=== PATIENT | male | born 1980 | race Two or more races ===

== ENCOUNTER 2017-04-11 02:49 | Emergency (ER) | payer SELFPAY ==
[~2017-04-11] VITALS: Ht 170.2 cm; Wt 63.5 kg
[~2017-04-11 02:49] MED LIST: NO REPORTABLE MEDS
--- NOTE | 2017-04-11 03:08 | NUR ---
PT PRESENTED TO THE ER WITH A C/O SORE THROAT WITH DIFFICULTY BREATHING. REDNESS NOTED AT BACK OF THROAT AND TONSILS SWOLLEN. PT STATED THAT IS CAUSING A HEADACHE. PT IS C/O LEFT EYE REDNESS WITH DISCHARGE. PT AMBULATED TO BED #3.
[2017-04-11] MEDS ORDERED: KETOROLAC TROMETHAMINE INJ 30 MG/ML VIAL ONE (03:24)
[2017-04-11] MEDS ORDERED: DEXAMETHASONE SOD PHOSPHATE 10 MG/ML VIAL ONE (03:24)
[2017-04-11] MEDS ORDERED: DEXAMETHASONE SOD PHOSPHATE 4 MG/ML VIAL IM ONE (03:30)
[2017-04-11] MEDS ORDERED: KETOROLAC TROMETHAMINE INJ 30 MG/ML VIAL IM ONE (03:30)
--- NOTE | 2017-04-11 04:17 | NUR ---
Patient discharged to home in stable condition. Written and verbal after care instructions given. Patient verbalizes understanding of instruction AND RX. PT AMBULATED OUT WITH A STEADY GAIT. VSS.
[2017-04-11 04:18] VITALS: BP 121/74
== END 2017-04-11 04:19 | disposition home or self-care (01) ==
LOC: ER 02:49
DX: J02.9 Acute pharyngitis, unspecified (principal); H10.9 Unspecified conjunctivitis; F41.9 Anxiety disorder, unspecified
CPT/HCPCS: 87070; 87880; 96372 ×2; 99284; A4606; J1100; J1885; Z7610; 86403-TC

== ENCOUNTER 2017-05-27 18:31 | Emergency (ER) | payer SELFPAY ==
[~2017-05-27] VITALS: Ht 167.6 cm; Wt 65.8 kg
[2017-05-27 18:43] VITALS: BP 124/77
[2017-05-27] MEDS ORDERED: ONDANSETRON 4 MG TAB.RAPDIS SL ONE (19:00)
[2017-05-27] MEDS ORDERED: HYDROCODONE/APAP 5/325MG 1 EACH TABLET PO ONE (19:00)
[2017-05-27] MEDS ORDERED: HYDROCODONE/APAP 5/325MG 1 EACH TABLET ONE (19:02)
[2017-05-27] MEDS ORDERED: ONDANSETRON 4 MG TAB.RAPDIS ONE (19:02)
== END 2017-05-27 19:43 | disposition home or self-care (01) ==
LOC: ER 18:34
DX: S22.32XA Fracture of one rib, left side, initial encounter for closed fracture (principal); X58.XXXA Exposure to other specified factors, initial encounter; Y93.67 Activity, basketball; Y92.89 Other specified places as the place of occurrence of the external cause; Y99.8 Other external cause status
CPT/HCPCS: 71100-TC; A4606; Q0162; Z7610

== ENCOUNTER 2018-07-30 21:43 | Emergency (ER) | payer OTHER ==
[~2018-07-30] VITALS: Ht 170.2 cm; Wt 62.1 kg
[2018-07-30 22:20] VITALS: BP 137/78
[2018-07-30] MEDS ORDERED: HYDROCODONE/APAP 10/325MG 1 EA TABLET ONE (22:57)
[2018-07-30] MEDS ORDERED: ONDANSETRON 4 MG TAB.RAPDIS ONE (22:57)
[2018-07-30] MEDS ORDERED: ONDANSETRON 4 MG TAB.RAPDIS SL ONE (23:00)
[2018-07-30] MEDS ORDERED: HYDROCODONE/APAP 10/325MG 1 EA TABLET PO ONE (23:00)
== END 2018-07-31 00:09 | disposition home or self-care (01) ==
LOC: ER 21:43
DX: S62.524A Nondisplaced fracture of distal phalanx of right thumb, initial encounter for closed fracture (principal); Z98.890 Other specified postprocedural states; Z60.2 Problems related to living alone; W21.05XA Struck by basketball, initial encounter; Y93.67 Activity, basketball; Y92.310 Basketball court as the place of occurrence of the external cause; Y99.8 Other external cause status
CPT/HCPCS: 29125; 73140; 99284; A4606; Q0162; Z7610

== ENCOUNTER 2022-04-29 01:02 | Emergency (ER) | payer SELFPAY ==
[~2022-04-29] VITALS: Ht 167.6 cm; Wt 63.5 kg
[2022-04-29 01:36] VITALS: BP 132/100
--- NOTE | 2022-04-29 01:36 | NUR ---
BIBWIFE C/O BACK PAIN, WITH LOWER LEG WEAKNESS AND RASH TO CHEST/BACK X1 DAY. PT A/OX4. TOLERATING R/A WELL WITH NO SOB.
--- NOTE | 2022-04-29 01:51 | NUR ---
PT SEEN BY DR. LAW BECKMAN
[2022-04-29] MEDS ORDERED: KETOROLAC TROMETHAMINE INJ 30 MG/ML VIAL ONE (01:57)
[2022-04-29] MEDS ORDERED: CYCLOBENZAPRINE 10 MG TABLET ONE (01:57)
[2022-04-29] MEDS ORDERED: CYCLOBENZAPRINE 10 MG TABLET PO ONE (02:00)
[2022-04-29] MEDS ORDERED: KETOROLAC TROMETHAMINE INJ 30 MG/ML VIAL IM ONE (02:00)
--- NOTE | 2022-04-29 02:07 | NUR ---
[employer] WR[employer]ING [employer]AM[employer]ER AT PT'S BEDSIDE
[2022-04-29 02:24] LABS: BASOPHILS % (AUTO) 0.3 % (0.0-2.0); EOSINOPHILS % (AUTO) 0.2 % (0.0-6.0); HEMATOCRIT 45 % (39-51); HEMOGLOBIN 15.1 g/dL (13.5-17.5); LYMPHOCYTES # (AUTO) 2.4 K/uL (0.8-4.8); LYMPHOCYTES % (AUTO) 22.7 % (20.0-44.0); MEAN CORPUSCULAR HGB CONC 34 g/dl (31.0-36.0); MEAN CORPUSCULAR VOLUME 90 fL (80-96); MONOCYTES # (AUTO) 0.7 K/uL (0.1-1.30); MONOCYTES % (AUTO) 6.3 % (2.0-12.0); NEUTROPHILS # (AUTO) 7.4 K/uL (1.8-8.9); NEUTROPHILS % (AUTO) 70.5 % (43.0-81.0); PLATELET COUNT (AUTO) 285 K/uL (150-450); RED BLOOD CELL COUNT(AUTO) 4.98 MIL/uL (4.5-6.0); WHITE BLOOD COUNT (AUTO) 10.4 K/uL (4.3-11.0)
[2022-04-29 02:36] LABS: ALBUMIN 3.9 g/dL (3.4-5.0); BILIRUBIN,TOTAL 0.6 mg/dL (0.2-1.0); CALCIUM, SERUM 8.9 mg/dL (8.5-10.1); POTASSIUM 3.8 mmol/L (3.5-5.1); TOTAL PROTEIN, SERUM 8.2 g/dL (6.4-8.2)
[2022-04-29] MEDS ORDERED: IBUP-1957 PO (03:17)
[2022-04-29] MEDS ORDERED: CYCL5TAB PO (03:17)
[2022-04-29] MEDS ORDERED: HYDR-4209 PO (03:17)
--- NOTE | 2022-04-29 03:27 | NUR ---
Patient discharged to home in stable condition. RX Written and verbal after care instructions given. Patient verbalizes understanding of instruction. PT ambulatory with a steady gait
== END 2022-04-29 03:30 | disposition home or self-care (01) ==
LOC: ER 01:18
DX: M54.50 Low back pain, unspecified (principal); R23.3 Spontaneous ecchymoses; Z98.890 Other specified postprocedural states; Z60.2 Problems related to living alone; Z79.899 Other long term (current) drug therapy
CPT/HCPCS: 36415; 80053; 85025; 85730; 96372; 99283; J1885

== ENCOUNTER 2025-08-29 19:56 | Emergency (ER) | payer BC ==
[~2025-08-29] VITALS: Ht 170.2 cm; Wt 65.8 kg
[~2025-08-29 19:56] MED LIST changes: +CYCL5TAB PO; +HYDR-4209 PO; +IBUP-1957 PO
[2025-08-29] MEDS: IV NS 0.9% 1,000 ML BAG IV ONE (20:28)
[2025-08-29 20:52] LABS: ASPARTATE AMINOTRANSFERASE 21 U/L (15-37); CALCIUM, SERUM 8.4 mg/dL (8.5-10.1); CREATININE 1.1 mg/dL (0.6-1.3); SODIUM SERUM 141 mmol/L (136-145); TOTAL PROTEIN, SERUM 7.1 g/dL (6.4-8.2); UREA NITROGEN, BLOOD 14 mg/dL (7-18)
[2025-08-29 20:55] LABS: PLATELET COUNT (AUTO) 260 K/uL (150-450); RED BLOOD CELL COUNT(AUTO) 4.72 MIL/uL (4.5-6.0); RED CELL DISTRIBUTION WIDTH 13.4 % (11.5-15.0); WHITE BLOOD COUNT (AUTO) 5.6 K/uL (4.3-11.0)
[2025-08-29 21:03] LABS: INR 0.97 (0.91-1.10)
[2025-08-29 21:52] VITALS: BP 129/84; TEMP 98.5; O2SAT 96
== END 2025-08-29 21:53 | disposition home or self-care (01) ==
LOC: ER 20:07
DX: R42 Dizziness and giddiness (principal); G40.909 Epilepsy, unspecified, not intractable, without status epilepticus; Z79.1 Long term (current) use of non-steroidal anti-inflammatories (NSAID); Z86.2 Personal history of diseases of the blood and blood-forming organs and certain disorders involving the immune mechanism
CPT/HCPCS: 36415; 70450-TC; 71045-TC; 80048-TC; 80076-TC; 82962-TC; 84484-TC; 85025-TC; 85730-TC

== ENCOUNTER 2025-10-18 22:29 | Emergency (ER) | payer BC ==
[~2025-10-18] VITALS: Ht 170.2 cm; Wt 68.0 kg
[2025-10-18 22:58] VITALS: BP 133/74; TEMP 98; O2SAT 99
== END 2025-10-18 23:43 | disposition home or self-care (01) ==
LOC: ER 22:32
DX: S01.112A Laceration without foreign body of left eyelid and periocular area, initial encounter (principal); Z79.1 Long term (current) use of non-steroidal anti-inflammatories (NSAID); W21.05XA Struck by basketball, initial encounter; Y93.67 Activity, basketball; Y92.310 Basketball court as the place of occurrence of the external cause; Y99.8 Other external cause status
CPT/HCPCS: 99282; A6403